=== PATIENT | female | born 1995 | race African-American/Black ===

== ENCOUNTER 2019-01-13 00:35 | Emergency (ER) | payer OTHER ==
[~2019-01-13] VITALS: Ht 157.5 cm; Wt 78.0 kg
[2019-01-13] MEDS ORDERED: IBUPROFEN 600MG TABLET PO STA (01:50)
[2019-01-13 02:25] LABS: CHLORIDE 108 mEq/L (98-107)
[2019-01-13 02:53] LABS: HCG SCREEN NEGATIVE
[2019-01-13 02:55] LABS: BASOPHILS % 0.6 % (0.0-2.0); EOSINOPHILS % 2.2 % (0.0-5.0); HEMATOCRIT. 32.3 % (36.0-48.0); HEMOGLOBIN. 10.9 g/dL (12.0-16.0); MEAN CORPUSCULAR HEMOGLOBIN 28.4 pg (28.0-32.0); MEAN CORPUSCULAR VOLUME 84.3 fL (81.0-99.0); MEAN PLATELET VOLUME 7.5 fl (7.4-10.4); MONOCYTES % 9.4 % (2.0-8.0); NEUTROPHILS % 42.8 % (40.0-76.0); PLATELET 303 x1000/uL (130-400); RED BLOOD CELL COUNT 3.83 mill/uL (4.2-5.4); RED CELL DISTRIBUTION WIDTH 16.5 % (11.6-14.6)
[2019-01-13 05:35] VITALS: BP 122/78
== END 2019-01-13 05:42 | disposition left against medical advice (07) ==
LOC: ER 00:35
DX: R07.89 Other chest pain (principal); R06.02 Shortness of breath; R05 Cough; Z87.19 Personal history of other diseases of the digestive system
CPT/HCPCS: 36415; 71045; 81025; 84484; 84703; 85379; 93005; 99284